=== PATIENT | female | born 1955 | race African-American/Black ===

== ENCOUNTER 2017-01-21 20:43 | Observation (INO) | payer OTHER ==
--- NOTE | ~2017-01-21 | CT71 ---
[facility] A Service [facility] RADIOLOGY TEXT RESULTS PATIENT: TANIA WANG LOCATION: [facility] : 55 UNIT #: [id number] AGE: [address]: Anay Messina MD SEX: F ORDER DR: [id number] [place] [id number] [facility]. [place], [place] [address] [id number] MR#: [id number] Acc #: [id number] NAME: TANIA WANG : 1955 SEX: F STUDY DATE/TIME: 01/21/2017 22:57 UNIT: [facility] ROOM: [facility] STUDY DESCRIPTION: CT Head Wo Contrast Attending Physician: Anay Messina M.D. Ordering Physician: Singh Narayanan D.O. Primary Care Physician: Mary Armenta M.D. MEDICAL IMAGING REPORT This report is preliminary unless electronic signature is present EXAM CT head without contrast INDICATION Right-sided head and face pain after a fall tonight. PROCEDURE Unenhanced CT of the head. This CT exam was performed with one or more of the following radiation dose reduction techniques: automatic exposure control, adjustment of mA and/or kV according to patient size, and iterative reconstruction. COMPARISON None FINDINGS No acute hemorrhage, abnormal mass effect, extraaxial collection or hydrocephalus. No calvarial fracture. IMPRESSION No acute findings. Dictated by... Yunior Ross M.D. THIS IS AN ELECTRONICALLY VERIFIED REPORT Yunior Ross M.D. at 01/26/2017 7:25 AM Jayant TD: 01/22/2017 09:35 JOB #: [id number] [facility] A Service [facility] RADIOLOGY TEXT RESULTS PATIENT: TANIA WANG LOCATION: [facility] : 55 UNIT #: [id number] AGE: [address]: Anay Messina MD SEX: F ORDER DR: MEDICAL IMAGING REPORT Page 1 of 1 COPY
--- NOTE | ~2017-01-21 | BMI ---
[facility] Nutrition Therapy DATE: 01/23/17 Patient: TANIA WANG Physician: NOELLE Address: [address] [place] [address] Room/Bed: [address] [place] [address], Zip: [place] [address] Admit Date: 01/22/17 Date of : 55 Height: 5 5 Weight: 251 114 HIGH BMI NOTE: DX: 61 Y.O. FEMALE ADMITTED FOR SYNCOPE, ORTHOSTATIC HYPOTENSION. ANTHROPOMETRICS: 5'5", WT: 251# (114 KG), BMI 41 DIET: CONSTANT CARBOHYDRATE INTERVENTION: 1. CONSTANT CARBOHYDRATE RECOMMENDATIONS: 1. ONCE MEDICALLY FEASIBLE, ADD HEALTHY HEART DIET TO CURRENT CONSTANT CARBOHYDRATE DIET ORDER IN ORDER TO PROMOTE GRADUAL WEIGHT LOSS TOWARD HEALTHY BMI (19.0-25.0) OR +/-10% IBW. RD WILL FOLLOW PER PROTOCOL. Respectfully, MARSHAL MENG, BAND SAW RUNNER KOBI JOESPH MS, RD, LD Food and Nutritional Services [facility] cc: client file
--- NOTE | ~2017-01-21 | CR72 ---
[facility] A Service of [facility] RADIOLOGY TEXT RESULTS PATIENT: TANIA WANG [facility]: [facility] 579-01 : 55 UNIT #: [id number] AGE: [address]: Anay Messina MD SEX: F ORDER DR: [id number] [facility] [address] [facility]. [place], [place] [address] [id number] I MR#: [id number] #: [id number] NAME: TANIA WANG : 1955 SEX: F STUDY DATE/TIME: 01/21/2017 22:07 UNIT: [facility] ROOM: [facility] STUDY DESCRIPTION: CR Chest Single View Portable Attending Physician: Anay Messina M.D. Ordering Physician: Singh Narayanan D.O. Primary Care Physician: Mary Armenta M.D. MEDICAL IMAGING REPORT This report is preliminary unless electronic signature is present EXAM Portable chest INDICATION Shortness of air today. PROCEDURE Frontal view of the chest. COMPARISON None. FINDINGS Upper limits of normal heart size. Mild linear atelectasis in the lung bases. No dense consolidation, pleural fluid or visible pneumothorax. IMPRESSION Linear atelectasis in the lung bases; otherwise, no acute findings. Dictated by... Yunior Ross M.D. THIS IS AN ELECTRONICALLY VERIFIED REPORT Yunior Ross M.D. at 01/26/2017 7:25 AM ABRAHAM/alexei TD: 01/22/2017 09:26 JOB #: [id number] MEDICAL IMAGING REPORT Page 1 of 1 COPY
--- NOTE | ~2017-01-21 | EKG ---
PATIENT: TANIA WANG UNIT #: [id number] Ventricular Rate: 75 BPM Atrial Rate: 75 BPM P-R Interval: 182 ms QRS Duration: 82 ms Q-T Interval: 406 ms QTC Calculation(Bezet): 453 ms P [place]: 52 degrees Calculated R [place]: 57 degrees Calculated T [place]: 57 degrees Diagnosis Line: Normal sinus rhythm Diagnosis Line: Possible Left atrial enlargement Diagnosis Line: Borderline ECG Diagnosis Line: No previous ECGs available Diagnosis Line: Confirmed by KASSIDY ESCUDERO MD ([id number]) on Diagnosis Line: 01/22/2017 7:10:19 PM INTERPRETING MD: KOTA GARCIA
--- NOTE | ~2017-01-21 | HP ---
Unit #: [id number] #: [id number] Patient: TANIA WANG [id number] [address] [address] [id number] I MR#: [id number] NAME: TANIA WANG ROOM: [address] Age: 61 Sex: F Admission Date: 01/22/2017 : 1955 Attending Physician: Carmen Mccray M.D. Primary Care Physician: Mary Armenta M.D. HISTORY AND PHYSICAL CHIEF COMPLAINT Near syncope and syncope with orthostatic hypotension. HISTORY This pleasant 61-year-old female with AODM, neuropathy, polymyositis, hypertension, is admitted for syncope and near syncope. The patient states that she had a little bit of emesis last evening. Then took her usual Zanaflex and Seroquel at about 6 p.m. Sometime afterwards, she developed blurred vision, felt lightheaded particularly when sitting up. Went to the bathroom around 8 p.m. and had a syncopal episode while on the commode. She states that she experienced diarrhea before the syncopal episode. Loss of consciousness was very brief. Noted some palpitations with the above. She was brought to this emergency department late last evening with a blood pressure of 116/87. She was quite orthostatic and her systolic blood pressure was about 64 when standing. Denies previous similar history. Denies any current symptoms of infection, melena, hematochezia. There may have been a change in one of her blood pressure medicines, I am unsure at this point in time. Workup shows that her sugar is 305, creatinine of 1.9 without previous baseline. PAST MEDICAL HISTORY 1. The patient states that she may have had an IA in 2008. Was hospitalized at that time for jaw surgery for her obstructive sleep apnea and was transferred to another room as there was some concern that she could have had "a slight heart attack." Did not require cardiac catheterization during that hospitalization, however. 2. Bipolar disorder. 3. Polymyositis. 4. Hypertension. 5. AODM with peripheral neuropathy. 6. Obstructive sleep apnea. 7. Appendectomy. 8. C-spine fusion. 9. Back surgery. 10. Rotator cuff repair. 11. Hysterectomy. 12. Urinary incontinence requiring Botox. 13. Tonsillectomy. ALLERGIES Neurontin. HOME MEDICATIONS Unit #: [id number] #: [id number] Patient: TANIA WANG 1. Zanaflex 4 mg, two tablets q.6 hours. 2. Claritin 10 mg daily. 3. Coreg 12.5 mg b.i.d. 4. Potassium 20 mEq daily. 5. Hydrochlorothiazide 12.5 mg daily. 6. VESIcare 10 mg daily. 7. Elavil 25 mg, two tablets at h.s. 8. Seroquel 200 mg, two and a half tablets in the evening. 9. Celexa 10 mg daily. 10. Prednisone 2 mg daily. 11. Methotrexate 2.5 mg, eight tablets every Thursday. 12. Folic acid 1 mg daily. 13. Vitamin B12 1000 mcg daily. 14. Vitamin D2 once a week. 15. Protonix 40 mg daily. 16. Benadryl 25 mg q.6 hours as needed. 17. Transdermal cream to feet b.i.d. 18. [place]urgis 5/500, one tablet q.4-6 hours as needed. 19. Nystatin powder. 20. Lyrica 50 mg t.i.d. 21. Possibly chlorthalidone as opposed to hydrochlorothiazide 25 mg. FAMILY HISTORY CAD. SOCIAL HISTORY The patient lives with her brother, is a lifelong nonsmoker, does not drink alcohol. REVIEW OF SYSTEMS Notable for near syncope and syncope, possible IA, bipolar disorder, polymyositis, diabetes, neuropathy, hypertension, obstructive sleep apnea, above mentioned surgeries. All other systems were reviewed and are otherwise negative. PHYSICAL EXAMINATION GENERAL APPEARANCE: Pleasant, obese, 61-year-old female who currently is in no acute distress. VITAL SIGNS: Temperature has not yet been obtained, pulse 73, respirations 18, blood pressure supine 92/63, standing blood pressure is 64/43. O2 saturation 95% on room air. HEENT: Eyes PERRLA. Extraocular muscles are intact. Pharynx is benign. NECK: Supple without adenopathy or thyromegaly. CHEST: Clear. CARDIAC: Normal S1 and S2 without S3, S4 or murmur. ABDOMEN: Bowel sounds are present. Mild generalized abdominal tenderness without rebound or guarding. EXTREMITIES: Without edema. Pedal pulses are diminished. No ulcers on the feet. NEUROLOGIC: The patient is awake, alert, oriented. Cranial nerves are intact. Equal strength throughout. DIAGNOSTIC STUDIES LABORATORY: Hematocrit is 42.2, white blood count is 11.9, normal platelet count. Cardiac markers negative. Normal coags. SMA-12 - glucose 305, creatinine 1.9 without previous values for comparison, chloride is 93, alkaline phos. 102. CPK is 96. Troponin is Unit #: [id number] #: [id number] Patient: TANIA WANG negative. IMAGING: Chest x-ray - no acute disease. CARDIOVASCULAR: EKG - normal sinus rhythm, rate 75, normal appearing. ASSESSMENT 1. Orthostatic hypotension with near syncope and syncope yesterday. 2. Adult onset diabetes mellitus with peripheral neuropathy. 3. Polymyositis on low dose steroids and methotrexate. 4. Hypertension. 5. Questionable coronary artery disease, questionable myocardial infarction in 2008. 6. Bipolar disorder. 7. Obstructive sleep apnea. PLANS 1. IV fluids. 2. Discontinue diuretics and potassium. 3. Obtain urinalysis. 4. Recheck labs in the morning. 5. Check orthostatics in the morning. 6. Will check temperature. 7. Further workup and consultants depending on above. Dictated by Carmen Mccray M.D. AML/df TD: 01/22/2017 05:35 JOB #: [id number] HISTORY AND PHYSICAL Page 1 of 1 X Carmen Mccray MD X HISTORY AND PHYSICAL
--- NOTE | ~2017-01-21 | DS ---
Unit #: [id number] #: [id number] Patient: TANIA WANG [id number] [address] [address] [id number] MR#: [id number] NAME: TANIA WANG ROOM: 579 Age: 61 Sex: F Admission Date: 01/22/2017 : 1955 Discharge Date: 01/23/2017 Attending Physician: Anay Messina M.D. Primary Care Physician: Mary Armenta M.D. DISCHARGE SUMMARY DISCHARGE DIAGNOSES 1. Near syncope secondary to volume depletion. 2. Orthostatic hypotension. 3. Dehydration. 4. History of obstructive sleep apnea, status post jaw surgery. 5. Bipolar. 6. Polymyositis. 7. Hypertension. 8. Diabetes mellitus type 2 with peripheral neuropathy. 9. Obstructive sleep apnea. 10. Urinary incontinence. 11. Morbid obesity. 12. Acute kidney injury. CONSULTANTS None. PROCEDURES None. DIAGNOSTIC STUDIES LABORATORY DATA: BMI 41. Glucose 210. Sodium 137, potassium 3.9, creatinine 1.0, CK total is 32. Occult blood negative. Troponin is negative IMAGING STUDIES: CT of the head negative. ALLERGIES Gabapentin. DISCHARGE MEDICATIONS 1. Prednisone 2 mg p.o. daily. 2. Lyrica 50 p.o. 3 times daily. 3. Amitriptyline 25 at bedtime. 4. Celexa 10 daily. 5. Nystatin applied topically b.i.d. 6. Chen 25 mg q.6 p.r.n. itching. 7. Claritin 10 daily. 8. Methotrexate 8 tablet p.o. Thursday. 9. Seroquel 200 at bedtime. 10. Coreg 12.5 p.o. b.i.d. 11. Vesicare 10 mg daily. 12. Levemir 10 units subcu at bedtime. 13. Humalog makes 50/50 sliding scale. Unit #: [id number] #: [id number] Patient: TANIA WANG 14. Vicodin 5 mg q.4-6 p.r.n. pain. 15. Protonix 40 daily. 16. Zanaflex 4 mg q.6 p.r.n. muscle spasm. 17. Folic acid 1 mg daily. 18. Vitamin B12 1,000 mcg p.o. daily. 19. Vitamin D 250,000 units every Thursday. 20. Transdermal cream applied 2-3 times a day topically p.r.n. HOSPITAL COURSE 61-year-old admitted with syncope. Syncope, secondary to orthostatic hypotension from volume depletion and dehydration. Also she was on hydrochlorothiazide, which has been discontinued currently and no dizziness. Patient received IV fluids, orthostatics stable. I am going to hold off on the hydrochlorothiazide. History of diabetes mellitus type 2, uncontrolled with peripheral neuropathy, continue with insulin. Acute kidney injury secondary to dehydration and prerenal. Patient received IV fluids. Creatinine stable. DISCHARGE DISPOSITION Home. FOLLOWUP Follow with family physician in week time. Dictated by... Miladis Monahan/arelis TD: 01/23/2017 12:50 JOB #: [id number] DISCHARGE SUMMARY Page 1 of 1 X Anay Messina MD X DISCHARGE SUMMARY
[2017-01-21 22:57] LABS: POC - TROPONIN <0.05 ng/mL (<=0.05)
[2017-01-21 22:59] LABS: BASOPHIL# 0.1 X10e3 (0-0.3); BASOPHIL% 0.8 % (0-2.5); EOSINOPHIL# 0.2 X10e3 (0-0.7); EOSINOPHIL% 1.6 % (0.0-7.0); HEMATOCRIT 42.2 % (35.0-45.0); HEMOGLOBIN 13.7 gm/dL (12.0-16.0); LYMPHOCYTE# 2.1 X10e3 (1.0-3.5); LYMPHOCYTE% 17.8 % (17.0-45.0); MEAN CELL VOLUME 97.8 FL (83-96); MEAN CORPUSCULAR HEMOGLOBIN 31.6 PG (28-34); MEAN CORPUSCULAR HGB CONC 32.4 g/dL (30-36); MEAN PLATELET VOLUME 9.6 FL (6.5-11.5); MONOCYTE# 1.3 X10e3 (0-1.0); MONOCYTE% 10.8 % (3.0-12.0); NEUTROPHIL# 8.2 X10e3 (1.5-7.1); PLATELET COUNT 189 X10e3 (140-420); RED BLOOD COUNT 4.32 X10e (3.90-5.30); RED CELL DISTRIBUTION WIDTH 14.4 % (11.0-15.5); WHITE BLOOD COUNT 11.9 X10e3 (4.0-10.5)
[2017-01-21 23:01] LABS: DIFF IND NO
[2017-01-21 23:13] LABS: PARTIAL THROMBOPLASTIN TIME 22.4 SECONDS (23.5-31.3); PROTHROMBIN TIME (PATIENT) 10.6 SECONDS (9.6-11.5)
[2017-01-21 23:35] LABS: ALBUMIN SERUM 4.2 g/dL (3.5-5.0); BILIRUBIN, DIRECT 0.1 mg/dL (0.0-0.2); BILIRUBIN,INDIRECT 0.1 mg/dL (0.0-0.9); BILIRUBIN,TOTAL 0.2 mg/dL (0.2-2.0); BUN/CREATININE RATIO 11.57; CALCIUM SERUM 9.4 mg/dL (8.4-10.2); CREATININE SERUM 1.9 mg/dL (0.6-1.4); GLOM FILT RATE Estimated 32.4 mL/min (>60); POTASSIUM 3.8 mmol/L (3.5-5.1); PROTEIN TOTAL SERUM 7.9 g/dL (6.0-8.3)
[2017-01-22 02:18] LABS: URINE SOURCE CLEAN CATCH
[2017-01-22 02:23] LABS: URINE APPEARANCE CLOUDY; URINE BILIRUBIN NEG (NEG); URINE BLOOD NEG (NEG); URINE COLOR YELLOW; URINE GLUCOSE >1000 MG/DL (NEG); URINE KETONE TRACE (NEG); URINE LEUKOCYTE ESTERASE NEG (NEG); URINE NITRATE NEG (NEG); URINE PROTEIN 1+ (NEG); URINE SPECIFIC GRAVITY 1.021 (1.003-1.035)
[2017-01-22] MEDS ORDERED: LEVEMIR FL100 UNIT/1 SUBQ (02:28)
[2017-01-22] MEDS ORDERED: TIZANIDINE HCL4 M1 PO (02:29)
[2017-01-22] MEDS ORDERED: HUMALOG MI100 UNIT/4 (02:29)
[2017-01-22] MEDS ORDERED: COREG12.5 MG PO (02:30)
[2017-01-22] MEDS ORDERED: CLARITIN10 M3 PO (02:30)
[2017-01-22] MEDS ORDERED: K-LOR HOSPITAL20 ME1 PO (02:30)
[2017-01-22] MEDS ORDERED: VESICARE PO (02:31)
[2017-01-22] MEDS ORDERED: HYDROCHLOROTH12.5 M1 PO (02:31)
[2017-01-22] MEDS ORDERED: AMITRIPTYLINE H25 MG PO (02:31)
[2017-01-22] MEDS ORDERED: QUETIAPINE FUM200 MG PO (02:32)
[2017-01-22] MEDS ORDERED: CELEXA10 MG PO (02:33)
[2017-01-22] MEDS ORDERED: RAYOS2 MG PO (02:34)
[2017-01-22] MEDS ORDERED: METHOTREXATE2.5 MG PO (02:34)
[2017-01-22 02:37] LABS: CULTURE INDICATED? NO
[2017-01-22] MEDS ORDERED: B-121000 MC1 PO (02:41)
[2017-01-22] MEDS ORDERED: FOLIC ACID1 MG PO (02:41)
[2017-01-22 02:48] LABS: AMPHETAMINE NEG (NEG); BARBITURATES NEG (NEG); BENZODIAZEPINES NEG (NEG); COCAINE POS (NEG); MARIJUANA NEG (NEG); OPIATES POS (NEG); TRICYCLIC ANTIDEPRESSANTS POS (NEG); U METHADONE NEG (NEG)
[2017-01-22] MEDS ORDERED: VITAMIN D250000 UNIT PO (02:51)
[2017-01-22] MEDS ORDERED: PROTONIX PO (02:51)
[2017-01-22] MEDS ORDERED: ALLERGY RELIEF25 MG PO (02:52)
[2017-01-22] MEDS ORDERED: [UNRECOGNIZED DRUG - OTHER] (02:52)
[2017-01-22] MEDS ORDERED: VICODIN 5-3001 EACH PO (02:53)
[2017-01-22] MEDS ORDERED: NYSTATIN1 EAC1 MC (02:54)
[2017-01-22] MEDS ORDERED: LYRICA50 MG PO (02:54)
[2017-01-22 06:10] LABS: BASOPHIL% 0.2 % (0-2.5); EOSINOPHIL# 0.2 X10e3 (0-0.7); EOSINOPHIL% 2.2 % (0.0-7.0); HEMATOCRIT 37.3 % (35.0-45.0); HEMOGLOBIN 12.4 gm/dL (12.0-16.0); LYMPHOCYTE# 2.2 X10e3 (1.0-3.5); LYMPHOCYTE% 21.5 % (17.0-45.0); MEAN CELL VOLUME 96.8 FL (83-96); MEAN CORPUSCULAR HEMOGLOBIN 32.1 PG (28-34); MEAN CORPUSCULAR HGB CONC 33.2 g/dL (30-36); MEAN PLATELET VOLUME 9.5 FL (6.5-11.5); MONOCYTE# 1.2 X10e3 (0-1.0); MONOCYTE% 11.2 % (3.0-12.0); NEUTROPHIL# 6.7 X10e3 (1.5-7.1); NEUTROPHIL% 64.9 % (40-75); PLATELET COUNT 148 X10e3 (140-420); RED BLOOD COUNT 3.85 X10e (3.90-5.30); RED CELL DISTRIBUTION WIDTH 14.5 % (11.0-15.5); WHITE BLOOD COUNT 10.4 X10e3 (4.0-10.5)
[2017-01-22 06:13] LABS: DIFF IND NO
[2017-01-22 06:53] LABS: BUN/CREATININE RATIO 13.52; CALCIUM SERUM 8.6 mg/dL (8.4-10.2); CREATININE SERUM 1.7 mg/dL (0.6-1.4); GLOM FILT RATE Estimated 37.1 mL/min (>60); POTASSIUM 3.7 mmol/L (3.5-5.1)
[2017-01-22 09:14] LABS: %MB 2.8 % (0.0-4.0); MB 1.9 ng/ml
[2017-01-23 06:27] LABS: HEMATOCRIT 38.1 % (35.0-45.0); HEMOGLOBIN 12.3 gm/dL (12.0-16.0); MEAN CORPUSCULAR HGB CONC 32.3 g/dL (30-36); MEAN PLATELET VOLUME 9.4 FL (6.5-11.5); RED BLOOD COUNT 3.84 X10e (3.90-5.30); RED CELL DISTRIBUTION WIDTH 14.6 % (11.0-15.5); WHITE BLOOD COUNT 6.4 X10e3 (4.0-10.5)
[2017-01-23 07:01] LABS: GLOM FILT RATE Estimated 70.5 mL/min (>60); MAGNESIUM 2.1 mg/dL (1.6-3.0); POTASSIUM 3.9 mmol/L (3.5-5.1)
[2017-01-23 07:39] LABS: %MB 3.2 % (0.0-4.0)
== END 2017-01-23 11:50 | disposition home or self-care (01) ==
LOC: CED 20:43 → CEDOF 01-22 01:40 → C5C 01-22 01:40 → CED 01-22 01:58 → CEDOF 01-22 01:58 → C5C 01-22 08:38
PROVIDERS: Emergency Medicine; Internal Medicine
DX: E86.1 Hypovolemia (principal); I95.1 Orthostatic hypotension; E86.0 Dehydration; F31.9 Bipolar disorder, unspecified; M33.20 Polymyositis, organ involvement unspecified; I10 Essential (primary) hypertension; E11.42 Type 2 diabetes mellitus with diabetic polyneuropathy; Z79.4 Long term (current) use of insulin; G47.33 Obstructive sleep apnea (adult) (pediatric); Z23 Encounter for immunization; R32 Unspecified urinary incontinence; E66.01 Morbid (severe) obesity due to excess calories; N17.9 Acute kidney failure, unspecified; Z79.52 Long term (current) use of systemic steroids; Z82.49 Family history of ischemic heart disease and other diseases of the circulatory system
CPT/HCPCS: 36415; 70450; 71010; 80048; 80076; 80307; 81003; 82274; 82550; 82553; 82947; 83735; 84484; 85025; 85027; 85610; 85730; 87086; 90732; 93005; 96360; 96361; 99285; G0009; G0378; J1815; J8610